=== PATIENT | male | born 1985 | race African-American/Black ===

== ENCOUNTER 2018-09-14 23:03 | Emergency (ER) | payer OTHER ==
[~2018-09-14] VITALS: Ht 180.3 cm; Wt 79.4 kg
--- NOTE | 2018-09-14 23:31 | NUR ---
ED Nurse Note: Patient walk in c/o abdominal pain radiating to left side of abdomen for 4 days. Patient reports rash on torso and upper extremities for 3 days. AO4. NAD. Attached to monitor; VSS. IV access established. Blood drawn; sent down to lab.
[2018-09-14 23:33] VITALS: BP 124/74
[2018-09-15] MEDS ORDERED: Isovue-300 100ml vial INJ PRN (00:15)
[2018-09-15] MEDS ORDERED: Ketorolac 30mg Inj IV ONE (00:15)
[2018-09-15 00:32] LABS: HEMATOCRIT 42.7 % (42.0-52.0); LYMPHOCYTES % (AUTO) 45.1 % (20.0-45.0); MEAN CORPUSCULAR VOLUME 85 FL (80-99); MONOCYTES % (AUTO) 7.2 % (1.0-10.0); NEUTROPHILS % (AUTO) 43.8 % (45.0-75.0); PLATELET COUNT 194 K/UL (150-450); RED BLOOD COUNT 5.02 M/UL (4.70-6.10); RED CELL DISTRIBUTION WIDTH 12.8 % (11.6-14.8); WHITE BLOOD COUNT 8.6 K/UL (4.8-10.8)
[2018-09-15 00:42] LABS: ANION GAP 9 mmol/L (5-15); BLOOD UREA NITROGEN 16 mg/dL (7-18); CALCIUM 9.4 MG/DL (8.5-10.1); CARBON DIOXIDE 27 MMOL/L (21-32); CHLORIDE 105 MMOL/L (98-107); CREATININE 0.9 MG/DL (0.55-1.30); POTASSIUM 4.1 MMOL/L (3.5-5.1); SODIUM 140 MMOL/L (136-145)
[2018-09-15 00:46] LABS: ALANINE AMINOTRANSFERASE 23 U/L (12-78); ALBUMIN/GLOBULIN RATIO 1.1 (1.0-2.7); ALKALINE PHOSPHATASE 62 U/L (46-116); ASPARTATE AMINO TRANSFERASE 18 U/L (15-37); BILIRUBIN,TOTAL 0.4 MG/DL (0.2-1.0)
[2018-09-15 02:58] LABS: APPEARANCE,URINE CLEAR; BILIRUBIN, URINE NEGATIVE (NEGATIVE); COLOR,URINE PALE YELLOW; GLUCOSE, URINE (UA) NEGATIVE (NEGATIVE); KETONES,URINE NEGATIVE (NEGATIVE); LEUKOCYTE ESTERASE ,URINE NEGATIVE (NEGATIVE); NITRITE,URINE NEGATIVE (NEGATIVE); PH,URINE 6 (4.5-8.0); PROTEIN,URINE NEGATIVE (NEGATIVE); UROBILINOGEN,URINE NORMAL MG/DL (0.0-1.0)
--- NOTE | 2018-09-15 03:15 | NUR ---
Note marcella in EDM - 09/15/18 at 0402 by [facility] ED Nurse Note: lactic reflex drawn; sent down to lab.
[2018-09-15] MEDS ORDERED: ZOFRAN4 MG ORAL (03:21)
[2018-09-15] MEDS ORDERED: DICYCLOMINE HCL10 MG PO (03:21)
[2018-09-15 03:35] VITALS: BP 119/67
--- NOTE | 2018-09-15 03:35 | NUR ---
ED Nurse Note: Patient cleared for discharge per ERMD. AO4. NAD. VSS. Patient given prescriptions and discharge instructions; verbalized understanding. IV and ID removed. Patient ambulated steady out of ED with all belongings.
--- NOTE | 2018-09-15 09:20 | Diagnostic Imaging Report ---
Indication: Abdominal pain Technique: Continuous helical transaxial imaging of the abdomen and pelvis was obtained from the lung bases to the pubic symphysis during intravenous contrast administration. Coronal 2-D reformats were also obtained. Study obtained in a Siemens sensation [address] Automatic Exposure Control was utilized. Total Dose length Product (DLP): 735.[address] Dose Index Volume (CTDIvol): 13.68 mGy Comparison: None Findings: The lung bases are clear. The gallbladder is contracted and not evaluated well on this examination. The liver and spleen, pancreas and kidneys, adrenal glands appear normal. There is a moderate amount of fecal material in the colon. The appendix is normal. The bladder is unremarkable. IMPRESSION: Negative examination. No acute findings appreciated The CT scanner at [facility] is accredited by the [employer] and the scans are performed using dose optimization techniques as appropriate to a performed exam including Automatic Exposure control.
--- NOTE | 2018-09-18 19:47 | Emergency Room Report ---
History of Present Illness General Chief Complaint: Abdominal Pain Source: Patient Present Illness HPI Patient is a 33-year-old male presented after increased abdominal pain. Patient reports having increased Abdominal discomfort for approximate 3-4 days. He had associated abdominal distention. He reports having pain primarily in the left lower abdomen. He reports having some mild diarrhea. He denies any fever or bloody stools. He denies any prior surgeries. Allergies: Coded Allergies: No Known Allergies (Unverified , 09/14/18) Patient History Past Medical History: see triage record Reviewed Nursing Documentation: PMH: Agreed; PSxH: Agreed Nursing Documentation-PMH Past Medical History: No Stated History Review of Systems All Other Systems: negative except mentioned in HPI Physical Exam Vital Signs Date Time Temp Pulse Resp B/P (MAP) Pulse Ox O2 Delivery O2 Flow Rate FiO2 09/14/18 23:07 97.7 68 18 124/74 99 Room Air Sp02 EP Interpretation: reviewed, normal General Appearance: normal inspection, well appearing, no apparent distress, alert, GCS 15 Head: atraumatic ENT: normal ENT inspection, hearing grossly normal, normal voice Neck: normal inspection, full range of motion, supple, no bony tend Respiratory: normal inspection, lungs clear, normal breath sounds, no respiratory distress, no retraction, no wheezing Cardiovascular #1: regular rate, rhythm, no edema Gastrointestinal: normal inspection, normal bowel sounds, non tender, soft, no guarding, no hernia, abnormal bowel sounds Genitourinary: no CVA tenderness Musculoskeletal: normal inspection, back normal, normal range of motion Neurologic: normal inspection, alert, oriented x3, responsive, pump tender III-XII nml as tested, speech normal Psychiatric: normal inspection, judgement/insight normal, mood/affect normal Skin: normal inspection, normal color, no rash Medical Decision Making Diagnostic Impression: Primary Impression: Nonspecific abdominal pain ER Course Patient presented for abdominal pain. Differential diagnoses included ischemic bowel, appendicitis, perforated viscus, abdominal aortic aneurysm, inferior myocardial infarction, viral gastroenteritis among others.Because of complexity of patient's case laboratory testing and imaging studies were ordered.Patient's laboratory studies were unremarkable. Patient was noted to have some improvement in symptoms after medications.CT of abdomen pelvis read by radiology showed : No acute intra-abdominal pathology. Patient appears to be stable for outpatient management.Patient was given prescription for medications for symptomatic treatment. He is advised to follow-up with his primary care physician for reexamination and to return if any other worsening of condition. Labs Test 09/14/18 23:15 09/15/18 02:30 White Blood Count 8.6 K/UL (4.8-10.8) Red Blood Count 5.02 M/UL (4.70-6.10) Hemoglobin 15.0 G/DL (14.2-18.0) Hematocrit 42.7 % (42.0-52.0) Mean Corpuscular Volume 85 FL (80-99) Mean Corpuscular Hemoglobin 29.9 PG (27.0-31.0) Mean Corpuscular Hemoglobin Concent 35.2 G/DL (32.0-36.0) Red Cell Distribution Width 12.8 % (11.6-14.8) Platelet Count 194 K/UL (150-450) Mean Platelet Volume 8.1 FL (6.5-10.1) Neutrophils (%) (Auto) 43.8 % (45.0-75.0) Lymphocytes (%) (Auto) 45.1 % (20.0-45.0) Monocytes (%) (Auto) 7.2 % (1.0-10.0) Eosinophils (%) (Auto) 2.0 % (0.0-3.0) Basophils (%) (Auto) 2.0 % (0.0-2.0) Sodium Level 140 MMOL/L (136-145) Potassium Level 4.1 MMOL/L (3.5-5.1) Chloride Level 105 MMOL/L (98-107) Carbon Dioxide Level 27 MMOL/L (21-32) Anion Gap 9 mmol/L (5-15) Blood Urea Nitrogen 16 mg/dL (7-18) Creatinine 0.9 MG/DL (0.55-1.30) Estimat Glomerular Filtration Rate > 60 mL/min (>60) Glucose Level 93 MG/DL (74-106) Calcium Level 9.4 MG/DL (8.5-10.1) Total Bilirubin 0.4 MG/DL (0.2-1.0) Aspartate Amino Transf (AST/SGOT) 18 U/L (15-37) Alanine Aminotransferase (ALT/SGPT) 23 U/L (12-78) Alkaline Phosphatase 62 U/L (46-116) Total Protein 7.5 G/DL (6.4-8.2) Albumin 4.0 G/DL (3.4-5.0) Globulin 3.5 g/dL Albumin/Globulin Ratio 1.1 (1.0-2.7) Lipase 151 U/L (73-393) Urine Color Pale yellow Urine Appearance Clear Urine pH 6 (4.5-8.0) Urine Specific Mcgrann 1.015 (1.005-1.035) Urine Protein Negative (NEGATIVE) Urine Glucose (UA) Negative (NEGATIVE) Urine Ketones Negative (NEGATIVE) Urine Blood Negative (NEGATIVE) Urine Nitrite Negative (NEGATIVE) Urine Bilirubin Negative (NEGATIVE) Urine Urobilinogen Normal MG/DL (0.0-1.0) Urine Leukocyte Esterase Negative (NEGATIVE) Last Vital Signs Date Time Temp Pulse Resp B/P (MAP) Pulse Ox O2 Delivery O2 Flow Rate FiO2 09/15/18 03:35 97.7 60 18 119/67 99 Room Air Status: improved Disposition: HOME, SELF-CARE Condition: Improved Scripts Dicyclomine Hcl* (DICYCLOMINE HCL*) 10 Mg Capsule 10 MG PO QID, #20 CAP Prov: Eirc Hernandez MD 09/15/18 Ondansetron (Zofran) 4 Mg Tablet 4 MG ORAL Q6H PRN for Nausea & Vomiting, #30 TAB 0 Refills Prov: Eric Hernandez MD 09/15/18 Referrals: NOT CHOSEN IPA/,REFERRING Patient Instructions: Abdominal Pain, Adult Eric Hernandez MD Sep 18, 2018 19:47
== END 2018-09-15 03:35 | disposition home or self-care (01) ==
LOC: EMR 09-15 03:03
DX: R10.9 Unspecified abdominal pain (principal)
CPT/HCPCS: 36415; 74177; 80053; 81003; 83690; 85025; 96374; 96375; 99284; J1885; J2405; J7040; Q9967